=== PATIENT | male | born 1995 | race Hispanic/Latino ===

== ENCOUNTER 2016-06-06 19:40 | Emergency (ER) | payer OTHER ==
[~2016-06-06] VITALS: Ht 167.6 cm; Wt 127.3 kg
[2016-06-06 19:58] VITALS: BP 143/93; PULSE 89; RESP 20; O2SAT 97
--- NOTE | 2016-06-06 20:59 | DRSVH ---
PROCEDURE: X-RAY CHEST, TWO VIEWS ([id number]) INDICATIONS: cough, fever TECHNIQUE: 2 views of the chest were acquired. COMPARISON: None. FINDINGS: Surgical changes and devices: None. Lungs and pleura: No pleural effusions or pneumothorax. . Mild scattered atelectasis without focal consolidation Mediastinum: Mediastinal contours are normal. Heart size is normal. Bones and chest wall: No suspicious bony abnormalities. Soft tissues appear unremarkable. IMPRESSION: No acute disease Dictated by: Jose Alfredo Hughes M.D. on 06/06/2016 at 20:57 Approved by: Jose Alfredo Hughes M.D. on 06/06/2016 at 20:57
--- NOTE | 2016-06-06 22:15 | ED.REPORT ---
HPI-URI / Cough / Cold Date of Service Jun 06, 2016 ED Provider: Daryl Franco DO A 21 year old male presents to the ED complaining of a fever that began 3 days ago. Associated symptoms include chills, generalized myalgias, SOB, weakness and cough. Patient denies diaphoresis. He did not receive the seasonal flu vaccine. He denies any other medical complaints at this time. Nursing Notes Stated Complaint: FEVER, CHILLS Chief Complaint: Respiratory Complaints Nursing Notes Reviewed: Yes Allergies: Coded Allergies: No Known Allergies (Unverified , 06/06/16) General Time Seen by MD: 22:14 Chief Complaint Fever Hx Obtained From: Patient Arrived By: Walk-in Onset Occurred: 3 days ago Symptom Duration: Since onset Location: : Diffuse myalgia Quality: Aching Radiation: Does not radiate Severity: Current: Moderate Severity: Maximum: Moderate Associated with: Reports: Body aches, Chills, Cough, Fever, Myalgia Pertinent Negative: Pt denies other symptoms Recent Healthcare: No recent doctor visit, No recent hospitalization Past Medical History Past Medical History None reported. Past Surgical History None reported. Smoking History Unknown if Ever Smoker Social History Other Social History: Good social support, Local resident Ambulatory Status Independent Review of Systems Constitutional: Reports: Chills, Fatigue, Fever, Malaise, Weakness - generalized Respiratory: Reports: Prod cough, clear, Shortness of breath GI: Denies: Nausea, Vomiting Neurologic: Denies: Change LOC Complete sys rev & neg: except as marked. Musculoskeletal: Reports: Myalgia Physical Exam Initial Vital Signs Vital Signs (First) Date Time Temp Pulse Resp B/P Pulse Ox O2 Delivery O2 Flow Rate FiO2 06/06/16 19:58 37.9 89 20 143/93 97 06/06/16 23:29 Room Air Initial VS: Reviewed Head / Eyes: Atraumatic, Normocephalic, PERRL Extremities: Vascular intact, Neuro intact, No swelling, No tenderness Skin: Warm, Dry, No cyanosis Neurologic: Alert, Oriented, Nonfocal Psychiatric: Mood/affect normal, Behavior normal, Normal thought content General/Constitutional: Awake, Alert ENT: Atraumatic, Airway patent Respiratory / Chest: Atraumatic Wheezing / Retractions: Positive: Wheezing mild (Faint ) Cardiovascular: Heart rate NL, Regular rhythm, Heart sounds NL Interpretation & Diagnostics Lab Results Interpretation Lab Results Interpretation: INFLUENZA: Positive Influenza A X-Ray Chest Interpretation Chest Xray Interpretation: IMPRESSION: No acute disease Dictated by: Jose Alfredo Hughes M.D. on 06/06/2016 at 20:57 Interpretation / Wet Read by: Interpret - Radiologist Re-Eval/Medical Decision Med Decision/Clinical Course lungs clear after the neb. Normal xray flu a positive. will rx with tamiflu and albuterol mdi Re-Evaluation/Progress : Time of Eval: 22:45 Patient Status: Condition improved Re-Evaluation/Progress Note: Patient is rechecked. He is informed of his lab results and diagnoses. All of the patient's questions are addressed. He understands and agrees with the treatment plan to discharge. Counseled Regarding: Diagnosis, Lab results, Need for follow-up, When/why to return to ED Discharge & Departure Impression: Primary Impression: Influenza A Additional Impression: Reactive airway disease Asthma severity: mild intermittent Asthma complication type: with acute exacerbation Qualified Code: J45.21 - Mild intermittent asthma with (acute) exacerbation Disposition: Home Discharge Condition All VS Reviewed: Yes Condition: Stable Patient Instructions: Influenza (ED) Additional Instructions: Thank you for trusting us with your care this evening. You tested positive for influenza A. Please take Tamiflu twice daily and Naprosyn twice daily. Avoid any Aspirin containing products. Make sure to get plenty of rest and plenty of fluids for the next week. Schedule a follow up appointment with your primary care physician in the next week if symptoms have not improved. Please return to the emergency department for any new or worsening conditions. Referrals: [facility] (PCP) [facility] Scribe Attestation Portions of this note were transcribed by Dante Barrera. I, Dr. Franco personally performed the history, physical exam and medical decision-making; I reviewed and confirmed the accuracy of the information in the transcribed note. Signed by: Dina Ty, 06/06/16 2300. Daryl Franco DO Jun 06, 2016 22:15 DANTE BARRERA Jun 06, 2016 22:38
[2016-06-06 23:29] VITALS: BP 127/81; PULSE 87; RESP 20; O2SAT 98
== END 2016-06-06 23:31 | disposition home or self-care (01) ==
LOC: SED 19:40
DX: J10.89 Influenza due to other identified influenza virus with other manifestations (principal); J45.21 Mild intermittent asthma with (acute) exacerbation; R50.9 Fever, unspecified; M79.1 Myalgia; R53.1 Weakness